=== PATIENT | female | born 1965 | race Caucasian/White ===

== ENCOUNTER 2017-03-18 14:03 | Day surgery (SDC) | payer OTHER ==
[~2017-03-18] VITALS: Ht 160 cm; Wt 68.7 kg
[2017-03-18 14:46] VITALS: Ht 160 cm; Wt 68.7 kg
[2017-03-18] MEDS ORDERED: NORVASC (14:54)
[2017-03-18] MEDS ORDERED: LEVOTHYROXINE (14:54)
[2017-03-18] MEDS ORDERED: ATORVASTATIN (14:54)
[2017-03-18 16:54] VITALS: BP 140/82; PULSE 90; RESP 18
--- NOTE | 2017-03-18 17:56 | OPPN ---
Date/Time of Note Date/Time of Note DATE: 03/18/17 TIME: 17:53 Proc Note GI Free Text/Dictation Procedure Date: 03/18/2017 Preoperative Diagnosis: Colorectal cancer screening Postoperative Diagnosis: * Normal colonic mucosa to cecum * Moderate-sized internal hemorrhoids Plan: * Annual Hemoccult stool testing * High-fiber diet * Screening colonoscopy in 10 years Procedure Performed: Colonoscopy Surgeon: Keith Caballero MD Agricultural Aircraft Pilot: None Second Ancillary Specialist: None Anesthesia/Sedation MAC/per anesthesiologist Tourniquet Time: NA Estimated Blood Loss: 0 Transfusion Required: No Specimens: None Grafts/Implants: None Tubes/Drains: NA Complications: None Pt. Condition Post Procedure: Stable Disposition: Home After informed consent, with the patient/relatives understanding the procedure, its indications and potential risks and complications, including but not limited to: Allergic reaction, bleeding, perforation, infection, and after all pertinent questions were answered to the patient's satisfaction, the patient/ relatives signed the witnessed informed consent. Following this, premedication was administered slowly IV push under careful cardiovascular and respiratory monitoring with pulse OX[employer]RY, automatic blood pressure, and teletypesetter monitor. Once the sedative effect was achieved, the patient was placed in the left lateral decubitus position, digital rectal examination was performed. A colonoscope was then introduced and advanced under visual control throughout all segments of the colon including: [the rectum, sigmoid, descending colon, splenic flexure, transverse colon, hepatic flexure, ascending colon and finally reaching the cecum which was clearly identified by transillumination, finger indentation and the ileocecal valve.] Careful examination of the mucosa of the lower gastrointestinal tract both on insertion as well as withdrawal of the instrument disclosed the following findings: Preparation quality: [Adequate], Rectal Examination: The anorectal area was visualized examined and digital rectal examination performed with the following findings: [No evidence of perirectal disease, no masses.] Colonic mucosa: The mucosa of all segments of the colon was carefully examined and showed the following findings: [the examined mucosa appears within normal limits. There is no evidence of inflammatory changes, diverticular formation, polyps or other neoplasms, vascular malformation, or any other abnormality.] Moderate-sized internal hemorrhoids The instrument was then withdrawn, the patient tolerated the procedure well and was transferred out of the Endoscopy Suite awake and in good condition to continue recovery under observation. Procedure date: Mar 18, 2017 KEITH CAABLLERO MD Mar 18, 2017 17:56
[2017-03-18 17:58] VITALS: BP 141/72; RESP 16
[2017-03-18 18:35] VITALS: BP 135/90; RESP 20
== END 2017-03-18 19:41 | disposition home or self-care (01) ==
LOC: GIL 14:03
PROVIDERS: ATTEND Internal Medicine Gastroenterology
DX: Z12.11 Encounter for screening for malignant neoplasm of colon (principal); K64.8 Other hemorrhoids; E78.5 Hyperlipidemia, unspecified; I10 Essential (primary) hypertension; E03.9 Hypothyroidism, unspecified